=== PATIENT | female | born 1975 | race American Indian/Alaskan Native ===

== ENCOUNTER 2018-02-25 00:34 | Emergency (ER) | payer MEDICARE ==
[2018-02-25 00:35] VITALS: BMI 23.8
[2018-02-25 00:51] VITALS: BP 111/62; PULSE 107; RESP 18; TEMP 98.4; O2SAT 99
--- NOTE | 2018-02-25 02:12 | C.PDOC ---
History Of Present Illness 42 year old female with a Hx of lupus, rheumatoid arthritis, and neuropathy presents to the ER with a complaint of pain to the right neck and radiates down her entire right side to her toes that has worsened today. Patient is on several narcotic medications but states no relief. Patient also reports intermittent numbness and tingling to the hands and feet, and being unable to lift her right arm and right leg. Denies extremity weakness, impairment of speech, incontinence of bowel or bladder, or trauma. Time Seen by Provider: 02/25/18 01:02 Chief Complaint (Nursing): Pain, Chronic History Per: Patient History/Exam Limitations: no limitations Onset/Duration Of Symptoms: Days Current Symptoms Are (Timing): Still Present Severity: Moderate Recent travel outside of the [place]: No Past Medical History Reviewed: Historical Data, Nursing Documentation, Vital Signs Vital Signs: Last Vital Signs Temp 98.4 F 02/25/18 00:42 Pulse 107 H 02/25/18 00:42 Resp 18 02/25/18 02:30 BP 111/62 02/25/18 00:42 Pulse Ox 99 02/25/18 21:10 - Medical History PMH: Crohn's Disease, Hyperlipidemia, Rheumatoid Arthritis - [facility] PSYCHIAT DRUG THERAP NEC (10/09/05) Family History: States: Unknown Family Hx - Social History Hx Alcohol Use: No Hx Substance Use: No - Immunization History Hx Tetanus Toxoid Vaccination: No Hx Influenza Vaccination: No Hx Pneumococcal Vaccination: No Review Of Systems Genitourinary: Negative for: Dysuria, Incontinence Musculoskeletal: Positive for: Neck Pain, Other (Pain to entire right side of body) Neurological: Positive for: Numbness (intermittent to right arm and leg), Other (Intermittent numbness and tingling to the hands and feet). Negative for: Weakness, Change in Speech, Headache Physical Exam - Physical Exam Appears: Non-toxic, Other (sleepy but easily arousable) Skin: Normal Color, Warm, Dry, No Jaundice Head: Atraumatic, Normacephalic, No Other (no apparent facial paresis) Eye(s): bilateral: Normal Inspection Oral Mucosa: Moist Neck: No Midline Cervical Tenderness, Paracervical Tenderness (Minimal right) Back: No CVA Tenderness, No Vertebral Tenderness, No Paraspinal Tenderness Extremity: Tenderness (with motion of right knee), No Deformity, No Swelling, Other (ROM of right leg actively limited but passively intact. Boggy knees. Pt able to lift up both legs with limitation to right but able to lift foot off the bed but c/o of pain ) Extremity: Bilateral: Atraumatic, Normal Color And Temperature Pulses: Left Radial: Normal, Right Radial: Normal, Left Dorsalis Pedis: Normal, Right Dorsalis Pedis: Normal Neurological/Psych: Oriented x3, Normal Speech, Normal Cognition, Normal Motor, Normal Sensation, Other (Rt arm extension to 30 degrees, patient unable to lift right arm fully but tightly squeezing my hand on the right side, able to resist right arm extension by exerting firm downward pressure) Gait: Unable To Assess (pt is in bed) ED Course And Treatment O2 Sat by Pulse Oximetry: 99 (Room air) Pulse Ox Interpretation: Normal Progress Note: [facility] reviewed, patient found to have received 360 -30mg oxycodone tablets on 02/16/18, 180 80mg of oxycontin on 02/16/18 and on . Patient advised that no narcotics will be given here in the ER based on narcotics Hx. Patient offered toradol IM and gabapentin which she agreed to. After receiving medications patient and relatives are requesting to be seen by the "ER doctor". Dr. Perla made aware, evaluated patient at bedside, patient was found to be neurologically intact, and Dr perla made the recommedation for c spine and upper extremity/ Rt shoulder CT- but when told again that no more narcotics will be given, patientleft. Pt was observed by transition specialist alone out of the ER unassisted by relatives. Disposition Counseled Patient/Family Regarding: Diagnosis, Need For Followup, Rx Given - Disposition Referrals: Hattie Miranda MD [Family Provider] - Disposition: HOME/ ROUTINE Disposition Time: 02:10 Condition: STABLE Additional Instructions: Please follow up with PMD tomorrow Continue current pain meds Return to ER if worse Instructions: Chronic Pain (DC) Forms: [facility] (Mexican) - Clinical Impression Clinical Impression: Chronic pain, Drug-seeking behavior - PA / [employer]LECT[employer] / Resident Statement MD/DO has reviewed & agrees with the documentation as recorded. - Scribe Statement The provider has reviewed the documentation as recorded by the Scribdaphney Jean All medical record entries made by the Scribe were at my direction and personally dictated by me. I have reviewed the chart and agree that the record accurately reflects my personal performance of the history, physical exam, medical decision making, and the department course for this patient. I have also personally directed, reviewed, and agree with the discharge instructions and disposition.
== END 2018-02-25 02:30 | disposition home or self-care (01) ==
LOC: SUPCPDRO 00:34 → C.ER 00:34
DX: G89.29 Other chronic pain (principal); Z76.5 Malingerer [conscious simulation]; E78.5 Hyperlipidemia, unspecified; M06.9 Rheumatoid arthritis, unspecified; K50.90 Crohn's disease, unspecified, without complications; M32.9 Systemic lupus erythematosus, unspecified
CPT/HCPCS: 96372; 99285; J1885